=== PATIENT | female | born 1960 | race Caucasian/White ===

== ENCOUNTER 2016-04-16 09:48 | Emergency (ER) | payer OTHER ==
[2016-04-16 11:05] VITALS: BP 156/81
--- NOTE | 2016-04-16 11:47 | UC ---
Respiratory Complaint HPI - HPI Summary HPI Summary: About 2 weeks ago felt achy, feverish, chilled and started coughing. Denies ST or nasal congestion. No hx of asthma or COPD. - History of Current Complaint Chief Complaint: UCRespiratory Stated Complaint: COUGH Time Seen by Provider: 04/16/16 11:30 Hx Obtained From: Patient Hx Last Menstrual Period: 6yrs ?: No Onset/Duration: Gradual Onset, Lasting Weeks Timing: Constant Severity Initially: Moderate Severity Currently: Moderate Character: Cough: Productive Aggravating Factors: Nothing Alleviating Factors: Nothing Associated Signs And Symptoms: Positive: Chills, Wheezing. Negative: Calf Swelling, URI, Nasal Congestion - Allergies/Home Medications Allergies/Adverse Reactions: Allergies Allergy/AdvReac Type Severity Reaction Status Date / Time No Known Allergies Allergy Verified 04/16/16 11:05 Home Medications: Home Medications guaiFENesin LIQ* [Robitussin*] 10 ml PO Q4H PRN 04/16/16 [History Confirmed ] PMH/Surg Hx/FS Hx/Imm Hx Previously Healthy: Yes Endocrine History Of: Denies: Diabetes, Thyroid Disease Cardiovascular History Of: Denies: Cardiac Disorders, Hypertension Respiratory History Of: Denies: COPD, Asthma GI/ History Of: Denies: Ulcer - Surgical History Surgical History: Yes Surgery Procedure, Year, and Place: appy - Family History Known Family History: Positive: Hypertension - Social History Lives: With Family Alcohol Use: Occasionally Substance Use Type: None Smoking Status (MU): Former Smoker Review of Systems Constitutional: Chills - resolved now, Fatigue Skin: Negative Eyes: Negative ENT: Negative Respiratory: Cough Cardiovascular: Negative Gastrointestinal: Negative Genitourinary: Negative Motor: Negative Neurovascular: Negative Musculoskeletal: Negative Neurological: Negative Psychological: Negative All Other Systems Reviewed And Are Negative: Yes Physical Exam Triage Information Reviewed: Yes Appearance: Well-Appearing, No Pain Distress, Well-Nourished Vital Signs: Initial Vital Signs Temp 98.7 F 04/16/16 10:59 Pulse 71 04/16/16 10:59 Resp 24 04/16/16 10:59 BP 156/81 04/16/16 10:59 Pulse Ox 100 04/16/16 10:59 Vital Signs Reviewed: Yes Eye Exam: Normal Eyes: Positive: Conjunctiva Clear ENT Exam: Normal ENT: Positive: Normal ENT inspection, Hearing grossly normal, Pharynx normal, TMs normal Dental Exam: Normal Neck exam: Normal Respiratory Exam: Other - freq dry, hacking cough Respiratory: Positive: Lungs clear, Normal breath sounds, No respiratory distress, No accessory muscle use Cardiovascular Exam: Normal Cardiovascular: Positive: RRR, Pulses Normal Musculoskeletal Exam: Normal Neurological Exam: Normal Psychological Exam: Normal Skin Exam: Normal Diagnostic Evaluation - Laboratory O2 Sat by Pulse Oximetry: 100 Respiratory Course/Dx - Differential Dx/Diagnosis Provider Diagnoses: post viral cough Discharge - Discharge Plan Condition: Stable Disposition: HOME Prescriptions: Albuterol HFA INHALER* [Ventolin HFA Inhaler*] 1 - 2 puff INH Q4H PRN #1 mdi PRN Reason: wheeze, cough Benzonatate CAP* [Tessalon CAP*] 100 mg PO TID PRN #30 cap PRN Reason: Cough Guaifenesin-Codeine [Guaiatussin AC] 5 - 10 ml PO Q6H #240 ml MDD 40mL Patient Education Materials: Acute Cough (ED) Referrals: Jesus Yi MD [Primary Care Provider] - Additional Instructions: POST-VIRAL COUGH: A very common cause of persistent cough is called "post-viral cough syndrome." During a viral infection, the virus can irritate your bronchial tubes. Then even after the infection is over, you may continue to cough. Your cough is left over from your recent viral infection. You do not show evidence of a continuing viral infection,bronchitis or pneumonia. You do not need antibiotics at this time. It may be helpful to use inhaled cool mist, throat lozenges, cough medication or bronchial inhalers to open up your bronchial tubes. We expect you will be improved in a week or two. Please get back to us if you have fever, chest pain, colored sputum, blood in the sputum, wheezing or shortness of breath. INHALED BRONCHODILATORS: You have received a prescription for an inhaled bronchodilator -- a medication which stimulates the airways in the lung to dilate. This improves the flow of air in asthma, bronchitis, and emphysema. These medicines have some similarity to adrenaline, and can cause similar side effects: shakiness, racing heart, and a sense of nervousness. These side effects can be reduced with the use of a spacer and usually decrease with time. Use 1-2 puffs up to every 4 hours as needed for wheezing or tightness in your chest. It may be helpful to use preventatively, such as before bedtime or before going outside into cold air. IF YOU FIND THAT YOU ARE CONSISTENTLY NEEDING THE INHALER MORE THAN 6 TIMES PER DAY, PLEASE CALL OR RETURN FOR FURTHER EVALUATION. COUGH-SUPPRESSANT & EXPECTORANT MEDICATION FOR SLEEPING ONLY: You are to use a cough medication as needed for relief of NIGHTTIME/ BEDTIME symptoms. This medicine is a combination of an expectorant (to make the mucous thinner and more easily "coughed up") and a cough suppressant (to reduce the frequency of coughing). The cough-suppressant medicine is related to narcotics. You may experience mild nausea and sleepiness. Some patients who are very sensitive to narcotics may have stomach pain from this medicine. Taking the medicine with food reduces these side effects. Do not drive or work with machinery until you know how this medicine affects you. The expectorant should have no side effects. Call your doctor if you develop shortness of breath, hives, rash, itching, lightheadedness, or severe nausea and vomiting. TESSALON: You have received a prescription for Tessalon Perles (benzonatate). This is a non-narcotic medicine for relief of cough. It usually works in about 15- 20 minutes and lasts around four hours. When they work, they are usually helpful with a lingering cough at the end of an illness. If you do not find them helpful now, wait several days and try again, as they may help your cough later on. Tessalon Perles should be swallowed. They should not be chewed or dissolved in the mouth (this can produce temporary numbing of the mouth and choking can occur). If you develop any adverse effects such as wheezing, shortness of breath, hives, rash, itching, or lightheadedness, please return at once.
== END 2016-04-16 11:45 | disposition home or self-care (01) ==
LOC: UCCORT 09:48
DX: R05 Cough (principal); B97.89 Other viral agents as the cause of diseases classified elsewhere; R09.81 Nasal congestion; R68.83 Chills (without fever); Z87.891 Personal history of nicotine dependence
CPT/HCPCS: 99212; G0463

== ENCOUNTER 2016-09-05 14:55 | Emergency (ER) | payer OTHER ==
[2016-09-05 15:29] VITALS: BP 128/84
[2016-09-05] MEDS ORDERED: Ketorolac INJ* 60 MG/2 ML VIAL IM ONE (16:33)
--- NOTE | 2016-09-05 17:20 | UC ---
Back Pain HPI - HPI Summary HPI Summary: Pt presents with c/o low back/buttock pain and stiffness s/p falling off a horse this morning. Pt c/o low back/buttock stiffness since falling. Denies LOC , [place], loss of bowel or bladder control,or numbness. - History of Current Complaint Chief Complaint: UCBackPain Stated Complaint: BACK PAIN Time Seen by Provider: 09/05/16 16:23 Hx Obtained From: Patient Hx Last Menstrual Period: 6yrs ?: No Onset/Duration: Gradual Onset, Lasting Hours Timing: Constant Severity Initially: Mild Severity Currently: Mild Back Pain: Is Discrete @ - low back/upper buttock Character: Dull, Aching, Stiffness Aggravating: Movement Alleviating: Rest, Position - Risk Factors AAA Risk Factors: Negative TAD Risk Factors: Negative Cauda Equina Risk Factors: Negative Epidural Abscess Risk Factors: Negative - Allergies/Home Medications Allergies/Adverse Reactions: Allergies Allergy/AdvReac Type Severity Reaction Status Date / Time No Known Allergies Allergy Verified 09/05/16 15:29 Home Medications: Home Medications Estrogen Cream 1 applic TOPICAL SEE INSTRUCTIONS 09/05/16 [History] Ibuprofen [Advil] 2 tab PO Q8HR PRN 09/05/16 [History Confirmed 09/05/16] PMH/Surg Hx/FS Hx/Imm Hx Previously Healthy: Yes - Surgical History Surgical History: Yes Surgery Procedure, Year, and Place: appy - Family History Known Family History: Positive: Hypertension - Social History Alcohol Use: Occasionally Substance Use Type: None Smoking Status (MU): Former Smoker Review of Systems Constitutional: Negative Skin: Negative Eyes: Negative ENT: Negative Respiratory: Negative Cardiovascular: Negative Gastrointestinal: Negative Genitourinary: Negative Motor: Decreased ROM - low back Neurovascular: Negative Musculoskeletal: Arthralgia, Decreased ROM - low back, Myalgia Neurological: Negative Psychological: Negative All Other Systems Reviewed And Are Negative: Yes Physical Exam Triage Information Reviewed: Yes Appearance: Pain Distress - mild, Vital Signs: Initial Vital Signs Temp 97.7 F 09/05/16 15:25 Pulse 57 09/05/16 15:25 Resp 16 09/05/16 15:25 BP 128/84 09/05/16 15:25 Pulse Ox 99 09/05/16 15:25 Eye Exam: Normal Neck exam: Normal Neck: Positive: Supple, Nontender Respiratory Exam: Normal Cardiovascular Exam: Normal Musculoskeletal Exam: Other Musculoskeletal: Positive: ROM Limited @ - low back Neurological Exam: Normal Psychological Exam: Normal Skin Exam: Normal Back Pain Course/Dx - Differential Dx/Diagnosis Differential Diagnosis/HQI/PQRI: Strain, Other - contusion Provider Diagnoses: low back strain. low back muscle spasm Discharge - Discharge Plan Condition: Stable Disposition: HOME Prescriptions: Cyclobenzaprine TAB* [Flexeril 10 MG TAB*] 10 mg PO TID PRN #15 tab PRN Reason: Pain Patient Education Materials: Low Back Strain (ED), Lower Back Exercises (ED) Referrals: Jesus Yi MD [Primary Care Provider] - If Needed
== END 2016-09-05 17:22 | disposition home or self-care (01) ==
LOC: UCCORT 14:55
DX: S39.012A Strain of muscle, fascia and tendon of lower back, initial encounter (principal); V80.010A Animal-rider injured by fall from or being thrown from horse in noncollision accident, initial encounter; Y93.52 Activity, horseback riding; Y92.9 Unspecified place or not applicable; M62.830 Muscle spasm of back; Z87.891 Personal history of nicotine dependence
CPT/HCPCS: 96372; 99212; G0463; J1885

== ENCOUNTER 2017-03-14 15:23 | Emergency (ER) | payer OTHER ==
[2017-03-14 15:37] VITALS: BP 173/88
[2017-03-14] MEDS ORDERED: HYDROcodone/ACETAMIN 5-325 MG* 1 TAB PO ONE (15:55)
[2017-03-14] MEDS ORDERED: Ondansetron ODT TAB* 4 MG PO ONE (15:55)
[2017-03-14] MEDS ORDERED: cefTRIAXone VIAL(*) 1,000 MG VIAL IM ONE (16:16)
[2017-03-14] MEDS ORDERED: Lidocaine 1% MPF* 2 ML VIAL INJ ONE (16:17)
[2017-03-14] MEDS ORDERED: Phenazopyridine TAB* 100 MG PO ONE (16:18)
--- NOTE | 2017-03-14 16:42 | UC ---
Sofie Knapp Emily, scribed for George Gannon MD on 03/14/17 at 1543 . Abdominal Pain Female HPI - HPI Summary HPI Summary: This patient is a 56 year old F presenting to urgent care accompanied by with a chief complaint of L flank pain that began on 03/10/2017. The patient rates the pain 8/10 in severity. Symptoms aggravated by nothing. Symptoms alleviated by nothing. Patient reports back pain, chills, vomiting, and increased urinary frequency. Patient denies fever. Pt saw PCP earlier today. PCP ordered a CT scan and pt reports the results being a swollen L ureter with no stone. PCP recommended pt come to urgent care for further evaluation. - History of Current Complaint Stated Complaint: BACK PAIN Time Seen by Provider: 03/14/17 15:32 Hx Obtained From: Patient Hx Last Menstrual Period: 6yrs ?: No Onset/Duration: Sudden Onset, Lasting Days, Still Present Timing: Constant Severity Initially: Severe Severity Currently: Severe Pain Intensity: 8 Pain Scale Used: 0-10 Numeric Location: Other - Flank Radiates: Yes Radiates to: Back Aggravating Factor(s): Nothing Alleviating Factor(s): Nothing Associated Signs and Symptoms: Positive: Back Pain, Vomiting, Other: - Positive chills and increased urinary frequency. Negative fever Allergies/Adverse Reactions: Allergies Allergy/AdvReac Type Severity Reaction Status Date / Time No Known Allergies Allergy Verified 03/14/17 15:26 PMH/Surg Hx/FS Hx/Imm Hx Previously Healthy: Yes Endocrine History: Other Other Endocrine History: Negative diabetes Cardiovascular History: Other Other Cardiovascular History: Negative HTN - Surgical History Surgical History: Yes Surgery Procedure, Year, and Place: appendectomy - Family History Known Family History: Positive: Hypertension - Social History Occupation: Employed Full-time Lives: With Family Alcohol Use: Occasionally Substance Use Type: None Smoking Status (MU): Former Smoker Review of Systems Constitutional: Chills, Other - Negative fever Gastrointestinal: Abdominal Pain, Vomiting Genitourinary: Frequency Musculoskeletal: Other: - Positive back pain All Other Systems Reviewed And Are Negative: Yes Physical Exam Triage Information Reviewed: Yes Vital Signs: Initial Vital Signs Temp 98.4 F 03/14/17 15:27 Pulse 73 03/14/17 15:27 Resp 20 03/14/17 15:27 BP 173/88 03/14/17 15:27 Pulse Ox 100 03/14/17 15:27 Vital Signs Reviewed: Yes - Additional Comments General: well-appearing, mild pain distress Skin: warm, color reflects adequate perfusion, dry Head: normal Eyes: EOMI, BRANDEN ENT: normal Neck: supple, nontender Respiratory: CTA, breath sounds present Cardiovascular: RRR Abdomen: soft, L flank tenderness, tenderness of the L side of the abd Bowel: present Musculoskeletal: normal, strength/ROM intact Neurological: normal, sensory/motor intact, A&O x3 Psychological: affect/mood appropriate Abd Pain Female Course/Dx - Course Course Of Treatment: DISCUSSED WITH DR HUITRON, UROLOGY. PYELONEPHRITIS VERSES PASSED, NON OBSTRUCTING STONE. RX ABX AND F/U PMD; GO TO ED IF WORSE. F/U WITH UROLOGY TO REEVALUATE LEFT HYDRONEPHROSIS AFTER CONDITION IMPROVED. DISCUSSED RESULTS WITH PATIENT AND HER TO INCLUDE ED EVAL NOW VERSES OUT PATIENT TREATMENT; PATIENT PREFERS OUT PATIENT TREATMENT. LABS PENDING. GO TO ED IF WORSE. - Differential Dx/Diagnosis Provider Diagnoses: PYELONEPHRITIS. LEFT FLANK PAIN - Physician Notification/Consults Discussed Care of Patient With: Gus Huitron Time Discussed With Above Provider: 15:38 Instructed by Provider To: Other - Consult with Dr. Huitron (urology) at 1538. He recommended pt be diagnosed with pyelonephritis and follow up with urology Discharge - Discharge Plan Condition: Stable Disposition: HOME Prescriptions: HYDROcodone/ACETAMIN 5-325 MG* [Sturgeon 5-325 TAB*] 1 tab PO Q4H PRN #20 tab MDD 6 PRN Reason: Pain Ondansetron ODT TAB* [Zofran 4 MG Odt TAB*] 4 mg PO Q6H PRN #10 tab.odt PRN Reason: Nausea Phenazopyridine 200 mg (NF) [Pyridium 200 MG tab *] 200 mg PO TID PRN #10 tab PRN Reason: Pain Sulfamethox/Trimethoprim DS* [Bactrim DS 800/160 TAB*] 1 tab PO BID #20 tab Patient Education Materials: Kidney Infection (ED), Flank Pain (ED) Referrals: Jesus Yi MD [Primary Care Provider] - Additional Instructions: FOLLOW UP WITH YOUR DOCTOR. FOLLOW UP WITH UROLOGY AFTER YOUR ILLNESS RESOLVES FOR RE EVALUATION OF YOUR LEFT KIDNEY. GO TO THE EMERGENCY DEPARTMENT FOR ANY WORSENING OF YOUR CONDITION; PAIN, FEVER , YOU FEEL ILL OR QUESTIONS OR CONCERNS. The documentation as recorded by the Sofie valera Emily accurately reflects the service I personally performed and the decisions made by me, George Gannon MD.
[2017-03-14 19:48] LABS: ABS Basophils 0.1 10^3/ul (0-0.2); ABS Eosinophils 0.2 10^3/ul (0-0.6); ABS Lymphocytes 2.9 10^3/ul (1.0-4.8); ABS Monocytes 0.7 10^3/ul (0-0.8); ABS Neutrophils 8.6 10^3/ul (1.5-7.7); ABS Nucleated RBC 0 10^3/ul; Hematocrit 38 % (35-47); Hemoglobin 12.9 g/dl (12.0-16.0); Lymphocyte % 23.3 % (25-47); Mean Corpuscular HGB Conc 34 g/dl (31-36); Mean Corpuscular Hemoglobin 30 pg (27-31); Mean Corpuscular Volume 88 fL (80-97); Mean Platelet Volume 7 um3 (7.4-10.4); Nucleated Red Blood Cells % 0; Platelet Count 399 10^3/ul (150-450); Red Blood Count 4.27 10^6/ul (4.0-5.4); Red Cell Distribution Width 12 % (10.5-15); White Blood Count 12.6 10^3/ul (3.5-10.8)
[2017-03-14 20:00] LABS: EGFR Non-African American 75.6 (>60)
--- NOTE | 2017-03-15 13:09 | UC ---
- Progress Note Progress Note: PLS CALL PT. ADVISE THAT LAB WORK SHOWS SLIGHTLY ELEVATED WHITE COUNT AND ELEVATED CRP. THIS IS C/W ACUTE INFECTION FOR WHICH SHE IS BEING TREATED. FOLLOW -UP WITH PCP ADVISED. TO ER IF SX WORSENING - PRASHANT BLISS MD Course/Dx - Course Course Of Treatment: DISCUSSED WITH DR CHRISTIANSON, UROLOGY. PYELONEPHRITIS VERSES PASSED, NON OBSTRUCTING STONE. RX ABX AND F/U PMD; GO TO ED IF WORSE. F/U WITH UROLOGY TO REEVALUATE LEFT HYDRONEPHROSIS AFTER CONDITION IMPROVED. DISCUSSED RESULTS WITH PATIENT AND HER TO INCLUDE ED EVAL NOW VERSES OUT PATIENT TREATMENT; PATIENT PREFERS OUT PATIENT TREATMENT. LABS PENDING. GO TO ED IF WORSE. - Provider Notifications Time Discussed With Above Provider: 15:38 Instructed by Provider To: Other - Consult with Dr. Christianson (urology) at 1538. He recommended pt be diagnosed with pyelonephritis and follow up with urology
--- NOTE | 2017-03-15 22:06 | UC ---
- Progress Note Progress Note: + UTI Pt on abx await sensitivity no change Honey 03/15/2017 Course/Dx - Provider Notifications Time Discussed With Above Provider: 15:38 Instructed by Provider To: Other - Consult with Dr. Christianson (urology) at 1538. He recommended pt be diagnosed with pyelonephritis and follow up with urology
== END 2017-03-14 16:55 | disposition home or self-care (01) ==
LOC: UCEAST 15:23
DX: N10 Acute pyelonephritis (principal); B96.20 Unspecified Escherichia coli [E. coli] as the cause of diseases classified elsewhere; R10.9 Unspecified abdominal pain; R11.10 Vomiting, unspecified; R68.83 Chills (without fever); Z90.89 Acquired absence of other organs; Z87.891 Personal history of nicotine dependence
CPT/HCPCS: 36415; 80053; 81003; 85025; 86140; 87077; 87086; 87186; 96372; 99212; A9270-GY; G0463; J0696

== ENCOUNTER 2018-05-13 08:40 | Emergency (ER) | payer OTHER ==
[2018-05-13 08:53] VITALS: BP 143/91
--- NOTE | 2018-05-13 09:09 | UC ---
Eye Complaint HPI - HPI Summary HPI Summary: 57-year-old female presents with one-day history of left eye pain, redness, and tearing. States had a little crusting of the eye this morning. Denies injury, purulent discharge, visual disturbances, photophobia, or URI symptoms. - History of Current Complaint Chief Complaint: UCEye Stated Complaint: EYE COMPLAINT Time Seen by Provider: 05/13/18 08:59 Hx Obtained From: Patient Hx Last Menstrual Period: 6yrs Pain Intensity: 7 - Allergies/Home Medications Allergies/Adverse Reactions: Allergies Allergy/AdvReac Type Severity Reaction Status Date / Time No Known Allergies Allergy Verified 05/13/18 08:48 Home Medications: Home Medications Folic Acid TAB* [Folvite TAB*] 1 mg PO DAILY 05/13/18 [History Confirmed ] Methotrexate TAB* 15 mg PO WEEKLY 05/13/18 [History Confirmed 05/13/18] PMH/Surg Hx/FS Hx/Imm Hx Previously Healthy: Yes - Denies significant PMH - Surgical History Surgical History: Yes Surgery Procedure, Year, and Place: appendectomy - Family History Known Family History: Positive: Hypertension - Social History Alcohol Use: Occasionally Substance Use Type: None Smoking Status (MU): Former Smoker Review of Systems All Other Systems Reviewed And Are Negative: Yes Constitutional: Negative: Fever, Chills Eyes: Positive: Drainage - Tearing left eye, Eye Redness - Left eye. Negative: Blurred Vision, Diplopia, Photophobia ENT: Negative: Sore Throat, Ear Ache, Nasal Discharge, Sinus Congestion Respiratory: Negative: Shortness Of Breath, Cough Cardiovascular: Positive: Negative Gastrointestinal: Positive: Negative Genitourinary: Positive: Negative Musculoskeletal: Positive: Negative Neurological: Positive: Negative Is Patient Immunocompromised?: No Physical Exam - Summary Physical Exam Summary: GENERAL APPEARANCE: Well developed, well nourished, alert and cooperative, and appears to be in no acute distress. EYES: Right eye normal. Left conjunctival erythema with tearing. PERRL, EOM intact. Vision is grossly intact. Tetracaine and fluorosceine instilled into the left eye and eye examined under magnification with Wood's lamp. A small punctate FB noted at the 6 o'clock position immediately below the pupil. This was successfully removed using a sterile cotton swab. EARS: External auditory canals and tympanic membranes clear, hearing grossly intact. NOSE: No nasal discharge. THROAT: Pharynx normal No tonsilar inflammation, swelling, exudate, or lesions. Uvula midline. Oral cavity normal. Teeth and gingiva in good general condition. NECK: Neck supple, non-tender without lymphadenopathy. CARDIAC: Normal S1 and S2. No S3, S4 or murmurs. Rhythm is regular. There is no peripheral edema, cyanosis or pallor. Extremities are warm and well perfused. Capillary refill is less than 2 seconds. Peripheral pulses intact. LUNGS: Clear to auscultation without rales, rhonchi, wheezing or diminished breath sounds. ABDOMEN: Positive bowel sounds. Soft, nondistended, nontender. No guarding or rebound. No masses or hepatosplenomegally. MUSKULOSKELETAL: ROM intact to all extremities. No joint erythema or tenderness. Normal muscular development. Normal gait. SKIN: Skin normal color, texture and turgor with no lesions or eruptions. Triage Information Reviewed: Yes Vital Signs: Initial Vital Signs Temp 97.6 F 05/13/18 08:47 Pulse 56 05/13/18 08:47 Resp 20 05/13/18 08:47 BP 143/91 05/13/18 08:47 Pulse Ox 99 05/13/18 08:47 Vital Signs Reviewed: Yes Eye Complaint Course/Dx - Course Course Of Treatment: 57-year-old female presents with one-day history of left eye pain, redness, and tearing. States had a little crusting of the eye this morning. Denies injury, purulent discharge, visual disturbances, photophobia, or URI symptoms. Afebrile. Vital signs stable. Exam reveals an adult female in no acute distress with left conjunctival erythema with tearing, extraocular eye movements intact, PERRL, and no obvious foreign body. Tetracaine and fluorescein was instilled into the left eye and examined under magnification with a Wood's lamp. A small, punctate foreign body was observed at the 6 o' clock position immediately below the pupil. This was successfully removed using a sterile cotton swab. The lower and upper eyelids were inverted and no other foreign bodies were noted. Erythromycin ophthalmic ointment was instilled into the left eye and the tube dispensed for home use. She is to instill a thin ribbon to the lower lid 4 times a day for 5 days. Recommending ibuprofen as needed for pain. She was given a referral to ophthalmology. She is to call for an appointment Tuesday. Anticipatory guidance and warning symptoms were reviewed with the patient. Verbalizes understanding and agrees with plan of care. - Differential Dx/Diagnosis Differential Diagnosis/HQI/PQRI: Conjunctivitis, Corneal Abrasion, Foreign Body , Uveitis Provider Diagnosis: Foreign body of left eye Discharge - Sign-Out/Discharge Documenting (check all that apply): Patient Departure All imaging exams completed and their final reports reviewed: No Studies - Discharge Plan Condition: Stable Disposition: HOME Patient Education Materials: Eye Foreign Body (ED) Referrals: Jesus Yi MD [Primary Care Provider] - Jorge Valle MD [Medical Doctor] - 3 Days (Call Tuesday for an appointment.) Additional Instructions: You had a small foreign body in the left eye that was removed. Use erythromycin ointment to prevent infection. Instill a small ribbon to the lower lid then blink your eye to spread it around. Do this 4 times a day for the next 5 days. Use ibuprofen (advil, Motrin) according to directions as needed for pain. Follow up with Dr. Jorge Valle, opthlamology, for recheck of symptoms. Call Tuesday for an appointment. Seek immediate medical attention in the emergency room if you have severe pain that is not managed with pain medication, visual disturbances, loss of vision, increased eye redness or swelling, or any worsening of symptoms. - Billing Disposition and Condition Condition: STABLE Disposition: Home - Attestation Statements Provider Attestation: Per institutional requirements, I have reviewed the chart, however, I was not consulted specifically or made aware of this patient by the midlevel provider. I did not personally evaluate, interact with , or disposition this patient.
[2018-05-13] MEDS ORDERED: Tetracaine 0.5% OPTH.SOL 4 ML* 1 DROP BTL LEFT EYE ONE (09:12)
[2018-05-13] MEDS ORDERED: Fluorescein Sodium TOPICAL* 1 MG TEST STRIP OPHTHALMIC ONE (09:12)
[2018-05-13] MEDS ORDERED: Erythromycin OPTH OINT* APPLIC OINT LEFT EYE ONE (09:21)
== END 2018-05-13 09:48 | disposition home or self-care (01) ==
LOC: UCCORT 08:40
DX: T15.92XA Foreign body on external eye, part unspecified, left eye, initial encounter (principal); X58.XXXA Exposure to other specified factors, initial encounter; Y92.9 Unspecified place or not applicable; Z87.891 Personal history of nicotine dependence
CPT/HCPCS: 65205; 99213; A9270-GY; G0463